=== PATIENT | female | born 1965 | race Caucasian/White ===

== ENCOUNTER 2017-09-22 08:44 | Emergency (ER) | payer OTHER ==
[~2017-09-22] VITALS: Ht 170.2 cm; Wt 81.7 kg
[~2017-09-22 08:44] MED LIST: KEFLEX250 MG PO; LIPITOR 20 MG T20 M1 PO; PRINIVIL10 MG PO
[2017-09-22] MEDS ORDERED: NORCO 5-325 TA1 EACH PO (09:41)
[2017-09-22 09:52] VITALS: BP 161/94
--- NOTE | 2017-09-22 11:31 | EKG ---
[place] [address] ELECTROCARDIOGRAM REPORT Name: SILKE MAYFIELD [id number] Admission: 09/22/17 Attend Phys: Discharge: 09/22/17 Date of : 61 Report #: [id number] THIS REPORT FOR: //name// [facility] Test Date: 2017-09-22 Test Time: 09:10:51 Pat Name: SILKE MAYFIELD Department: Room: Gender: F Home Security Professional: Serge CRUZ : 1965 Requested By: Smith Cronin Order Number: [id number] MD: Paul Snider Measurements Intervals [place] Rate: 81 P: 70 [place]: 135 QRS: 46 QRSD: 90 T: 19 QT: 374 QTc: 434 Interpretive Statements Sinus rhythm Probable left atrial enlargement No previous ECG available for comparison Electronically Signed On 09-22-2017 11:31:27 BUSINESS ANALYTICS DIRECTOR by Paul Snider [email or web address] <ELECTRONICALLY SIGNED> By: Paul Snider MD, [facility] 09/22/17 1131 0910 0910 Paul Snider MD, FACC /EPI
== END 2017-09-22 09:53 | disposition home or self-care (01) ==
LOC: M.ERS 08:44
DX: S29.011A Strain of muscle and tendon of front wall of thorax, initial encounter (principal); I10 Essential (primary) hypertension; E78.00 Pure hypercholesterolemia, unspecified; Z98.890 Other specified postprocedural states; W18.40XA Slipping, tripping and stumbling without falling, unspecified, initial encounter; Y93.89 Activity, other specified; Y92.89 Other specified places as the place of occurrence of the external cause; Y99.8 Other external cause status